=== PATIENT | male | born 1995 | race Caucasian/White ===

== ENCOUNTER 2018-11-18 18:26 | Inpatient (IN) | payer OTHER ==
[~2018-11-18] VITALS: Ht 175.3 cm; Wt 117.9 kg
[~2018-11-18 18:26] MED LIST: DOXYCYCLINE 10100 MG PO; ULTRAM 50MG TAB50 MG PO
[2018-11-18 18:37] VITALS: BP 130/87
[2018-11-18 19:04] LABS: ABSOLUTE BASOPHILS 0.1 thou/uL (0.0-0.2); ABSOLUTE MONOCYTES 0.8 thou/uL (0.0-1.2); ABSOLUTE NEUTROPHILS 8.4 thou/uL (1.6-8.1); BASOPHILS 0.6 %; EOSINOPHILS 0.4 %; HEMATOCRIT 49.7 % (42.0-52.0); MCH 32.7 pg (26.0-34.0); MCHC 34.2 g/dL (28.0-37.0); MCV 95.5 fL (80.0-100.0); MONOCYTES 6.7 %; MPV 11.2 fl. (7.2-11.1); NUCLEATED RBCS 0 /100WBC; PLATELET COUNT* 260 thou/uL (150-400); POLYS 74.3 %; RDW-CV 12.5 % (10.5-14.5); WBC 11.3 thou/uL (4.0-11.0)
[2018-11-18 19:11] LABS: CALCIUM 9.2 mg/dL (8.5-10.1); CREATININE 1.5 mg/dL (0.6-1.3)
[2018-11-18 19:15] LABS: ALBUMIN 4.4 g/dL (3.4-5.0)
[2018-11-18 21:44] VITALS: BP 122/73
[2018-11-18 22:50] VITALS: BP 120/66
[2018-11-19 04:09] LABS: ABSOLUTE LYMPHOCYTES 1.2 thou/uL (0.8-5.3); ABSOLUTE MONOCYTES 1.2 thou/uL (0.0-1.2); ABSOLUTE NEUTROPHILS 9.2 thou/uL (1.6-8.1); BASOPHILS 0.2 %; EOSINOPHILS 0.1 %; HEMATOCRIT 45.3 % (42.0-52.0); HEMOGLOBIN 15.4 gm/dL (14.0-18.0); LYMPHOCYTES 10.4 %; MCHC 33.9 g/dL (28.0-37.0); MCV 97.4 fL (80.0-100.0); MPV 11.1 fl. (7.2-11.1); NUCLEATED RBCS 0 /100WBC; POLYS 79.3 %; RBC 4.65 mil/uL (4.50-6.00); RDW-CV 12.3 % (10.5-14.5); WBC 11.7 thou/uL (4.0-11.0)
[2018-11-19 04:12] LABS: PLATELET COUNT* 174 thou/uL (150-400)
--- NOTE | 2018-11-19 04:20 | NUR ---
PT REMAINED ALERT AND ORIENTED. PT SLEPT MOST OF THE NIGHT. PT C/O PAIN, MEDS GIVEN ORDERED. URINE STRAINED, NO STONE. UA AND DRUGS OF ABUSE SCREEN COLLECTED AND SENT TO LAB. PT NPO AFTER MIDNIGHT. FALL RISK PRECAUTIONS IN PLACE. HOURLY ROUNDING COMPLETED. WILL CONTINUE TO MONITOR.
[2018-11-19 04:31] LABS: URINE BLOOD 3+ (Negative); URINE CLARITY CLEAR; URINE COLOR DARK YELLOW; URINE GLUCOSE-RANDOM NEGATIVE (Negative); URINE KETONES TRACE (Negative); URINE LEUKOCYTES NEGATIVE (Negative); URINE NITRITE NEGATIVE (Negative); URINE PROTEIN 1+ (Negative); URINE SPECIFIC GRAVITY >= 1.030 (1.005-1.030)
[2018-11-19 04:36] LABS: ICTOTEST (BILI CONFIRMATORY) Negative (Negative); URINE BILIRUBIN 1+ (Negative)
[2018-11-19 04:41] LABS: AMP/METHAMP Negative (Negative); BARBITURATES Negative (Negative); BENZODIAZEPINES Negative (Negative); COCAINE Negative (Negative); METHADONE Negative (Negative); OPIATES POSITIVE (Negative); PCP Negative (Negative); THC POSITIVE (Negative)
[2018-11-19 04:43] LABS: ALBUMIN 3.4 g/dL (3.4-5.0); CALCIUM 8.2 mg/dL (8.5-10.1); CREATININE 1.5 mg/dL (0.6-1.3); TOTAL BILIRUBIN 0.8 mg/dL (<0.1-1.0); TOTAL PROTEIN 6.3 g/dL (6.4-8.2)
[2018-11-19 04:52] LABS: POTASSIUM 4.2 mmol/L (3.5-5.1)
[2018-11-19 04:58] LABS: HYALINE CASTS 0-3 Few /LPF (None Seen); MUCUS 4-6 Moderate strn/LPF (None Seen); SQUAMOUS 0-3 Few /LPF (0-3)
[2018-11-19 04:59] LABS: BACTERIA 1-9 Few /HPF (None Seen); CRYSTALS None Seen /LPF (None Seen); URINE RBC >20 Many /HPF (0-2); URINE WBC 6-15 Few /HPF (0-5)
[2018-11-19 07:45] VITALS: BP 137/87
[2018-11-19 12:19] VITALS: BP 137/87
[2018-11-19] MEDS ORDERED: FLOMAX0.4 MG PO (12:28)
[2018-11-19] MEDS ORDERED: NORCO 5-325 TA1 EACH PO (12:29)
[2018-11-19] MEDS ORDERED: ONDANSETRON HCL4 M2 PO (13:02)
--- NOTE | 2018-11-19 19:54 | NUR ---
PATIENT LEFT UNIT ALERT AND ORIENTED X4. UP AD KURT IN ROOM. IV DC'D. DENIES NEED FOR PAIN MEDICATION. NAUSEA BEING MANAGED WITH IV MEDICATION. TOLERATING DIET. ALL PERSONAL ITEMS LEFT WITH PATIENT. DISCHARGE INSTRUCTIONS, PRESCRIPTIONS, AND NEW MEDICATION INFORAMTION SENT WITH PATIENT. VSS ON ROOM AIR. HOURLY ROUNDS HAVE BEEN MAINTAINED THROUGHOUT SHIFT. LEFT WITH MOM VIA CAR.
[2018-11-19 19:59] VITALS: BP 137/87
== END 2018-11-19 14:10 | disposition home or self-care (01) | DRG 694 ==
LOC: M.ERS 18:26 → M.TBA-ER 20:55 → M.ORTHSURG 20:55
PROVIDERS: Nurse Practitioner Family; ADMIT Internal Medicine
DX: N13.2 Hydronephrosis with renal and ureteral calculous obstruction (principal); N21.1 Calculus in urethra; I10 Essential (primary) hypertension; R33.9 Retention of urine, unspecified; F12.90 Cannabis use, unspecified, uncomplicated; F17.210 Nicotine dependence, cigarettes, uncomplicated; Z88.2 Allergy status to sulfonamides; Z88.8 Allergy status to other drugs, medicaments and biological substances; Z23 Encounter for immunization